=== PATIENT | female | born 1980 | race Two or more races ===

== ENCOUNTER 2025-07-23 01:48 | Inpatient (IN) | payer MEDICAID ==
[~2025-07-23] VITALS: Ht 170.2 cm; Wt 92.1 kg
[2025-07-23 04:37] VITALS: BP 121/72; PULSE 77; RESP 18; TEMP 98.4; O2SAT 100
[2025-07-23] MEDS ORDERED: PNEUMOCOCCAL VACCINE POLYVALENT 0.5 ML SYRINGE [PPSV23] IM. ONE (06:45)
[2025-07-23 08:11] VITALS: BP 129/85; PULSE 80; RESP 17; TEMP 98; O2SAT 100
[2025-07-23 09:13] LABS: PLATELET COUNT (AUTO) 255 K/uL (150-450); RED BLOOD CELL COUNT(AUTO) 3.93 MIL/uL (4.00-5.20); RED CELL DISTRIBUTION WIDTH 14.7 % (11.5-14.5); WHITE BLOOD COUNT (AUTO) 5.2 K/uL (4.5-11.0)
[2025-07-23 09:26] LABS: APPEARANCE,URINE TURBID (CLEAR); GLUCOSE, URINE (UA) TRACE mg/dL (NEGATIVE); LEUKOCYTE ESTERASE ,URINE MODERATE (NEGATIVE); NITRATE,URINE NEGATIVE (NEGATIVE); OCCULT BLOOD,URINE NEGATIVE (NEGATIVE); PH,URINE DRUG SCREEN 5.5 (5.0-8.0); SPECIFIC GRAVITIY, URINE 1.031 (1.003-1.030)
[2025-07-23 09:38] LABS: ASPARTATE AMINOTRANSFERASE 16 U/L (15-37); CALCIUM, TOTAL 8.7 mg/dL (8.8-10.5); CHOL/HDL RATIO 2.9 (3.9-5.7); CREATININE 0.41 mg/dL (0.60-1.30); GLOMERULAR FILTR. RATE CALC > 60 mL/min (>60); GLUCOSE,RANDOM 81 mg/dL (70-110); LDL CHOL (CALC.) 81 mg/dL (0-130); SODIUM SERUM 140 mmol/L (136-145); TOTAL PROTEIN, SERUM 6.7 g/dL (6.4-8.2); UREA NITROGEN, BLOOD 11 mg/dL (7-18)
[2025-07-23 09:43] LABS: ALCOHOL, URINE DRUG SCREEN NEGATIVE (NEGATIVE); AMPHET/METH SCREEN,URINE NEGATIVE (NEGATIVE); BARBITURATE SCREEN, URINE NEGATIVE (NEGATIVE); CANNABINOID SCREEN,URINE NEGATIVE (NEGATIVE); COCAINE SCREEN,URINE NEGATIVE (NEGATIVE); METHADONE SCREEN, URINE NEGATIVE (NEGATIVE)
[2025-07-23] MEDS ORDERED: ALBUTEROL SULFATE HFA 90 MCG/PUFF 8 GM INHALER IH PRN (09:45)
[2025-07-23] MEDS ORDERED: GuaiFENesin/D-METHORPHAN [SUGAR-FREE] 200-20MG/10 ML SYRUP UDCUP PO PRN (09:45)
[2025-07-23] MEDS ORDERED: LOPERAMIDE HCL 2 MG CAPSULE PO PRN (09:45)
[2025-07-23] MEDS ORDERED: NICOTINE 14 MG/24 HOUR PATCH TD PRN (09:45)
[2025-07-23] MEDS ORDERED: IBUPROFEN 400 MG TABLET PO PRN (09:45)
[2025-07-23] MEDS ORDERED: MAGNESIUM HYDROXIDE SUSPENSION 30 ML UDCUP PO PRN (09:45)
[2025-07-23] MEDS ORDERED: DOCUSATE SODIUM 100 MG CAPSULE PO PRN (09:45)
[2025-07-23] MEDS ORDERED: ONDANSETRON 4 MG TABLET PO PRN (09:45)
[2025-07-23] MEDS ORDERED: MAG HYDROX/ALUMINUM HYD/SIMETH ES 30 ML SUSPENSION UDCUP PO PRN (09:45)
[2025-07-23 09:56] LABS: SQUAMOUS EPITHELIAL CELL,UR Moderate /LPF (None Seen)
[2025-07-23 20:00] VITALS: BP 122/83; PULSE 73; RESP 18; TEMP 97.8; O2SAT 100
[2025-07-24 04:07] LABS: HEPATITIS C AB (EIA) Non Reactive (Non Reactive)
[2025-07-24 08:02] VITALS: BP 138/87; PULSE 90; RESP 16; TEMP 98.2; O2SAT 100
[2025-07-24] MEDS: CEPHALEXIN MONOHYDRATE 500 MG CAPSULE PO SCH (09:20)
[2025-07-24 09:33] LABS: CHOL/HDL RATIO 2.7 (3.9-5.7); LDL CHOL (CALC.) 78.0 mg/dL (0-130)
[2025-07-24 20:11] VITALS: BP 140/84; PULSE 87; RESP 17; TEMP 99; O2SAT 96
[2025-07-24] MEDS: ZOLPIDEM TARTRATE 10 MG TABLET PO PRN (21:28)
[2025-07-25 01:28] VITALS: RESP 18
[2025-07-25] MEDS: ACETAMINOPHEN 325 MG TABLET PO PRN (01:33)
[2025-07-25 08:46] VITALS: BP 131/81; PULSE 85; RESP 18; TEMP 98.4
[2025-07-25 20:13] VITALS: BP 139/87; PULSE 95; RESP 16; TEMP 97.7; O2SAT 97
[2025-07-26 08:28] VITALS: BP 133/91; PULSE 89; RESP 17; TEMP 97.5; O2SAT 100
[2025-07-26] MEDS ORDERED: LORazepam 2 MG/ML VIAL ONE (13:58)
[2025-07-26] MEDS: LORazepam 2 MG/ML VIAL IM ONE (14:18)
[2025-07-26 20:14] VITALS: BP 124/81; PULSE 69; TEMP 98.2; O2SAT 17
[2025-07-27 08:06] VITALS: BP 131/72; PULSE 64; RESP 18; TEMP 96.7; O2SAT 100
[2025-07-27 20:23] VITALS: BP 132/85; PULSE 66; RESP 18; TEMP 97.4; O2SAT 100
[2025-07-28 08:10] VITALS: BP 140/83; PULSE 90; RESP 18; TEMP 97.5; O2SAT 98
[2025-07-28 20:10] VITALS: BP 117/76; PULSE 81; RESP 17; TEMP 97.9; O2SAT 98
[2025-07-28] MEDS: PETROLATUM,WHITE 28 GM JELLY TP PRN (22:47)
[2025-07-29 08:29] VITALS: BP 126/92; PULSE 72; RESP 18; TEMP 97.5; O2SAT 99
[2025-07-29 21:02] VITALS: BP 124/89; PULSE 98; RESP 18; TEMP 98.2; O2SAT 100
[2025-07-30 08:05] VITALS: BP 132/84; PULSE 84; RESP 16; TEMP 98.1; O2SAT 100
[2025-07-30 20:20] VITALS: BP 128/99; PULSE 86; RESP 20; TEMP 97.8; O2SAT 100
[2025-07-31 08:22] VITALS: BP 108/79; PULSE 95; RESP 16; TEMP 98.5; O2SAT 100
[2025-07-31] MEDS ORDERED: LORazepam 2 MG/ML VIAL ONE (18:59)
[2025-07-31] MEDS: LORazepam 2 MG/ML VIAL IM ONE (19:41)
[2025-07-31 21:32] VITALS: BP 118/80; PULSE 81; RESP 18; TEMP 97.3; O2SAT 97
[2025-08-01 02:20] VITALS: BP 128/86; PULSE 85; RESP 17; TEMP 98.2; O2SAT 100
[2025-08-01 14:16] VITALS: RESP 18
[2025-08-01 21:22] VITALS: RESP 17
[2025-08-02 08:45] VITALS: RESP 18
[2025-08-02] MEDS: DIVALPROEX SODIUM 500 MG DR TABLET PO SCH (09:47)
[2025-08-02 10:05] VITALS: RESP 18
[2025-08-02 11:05] VITALS: RESP 18
[2025-08-02 20:16] VITALS: BP 127/82; PULSE 87; RESP 17; TEMP 97.1; O2SAT 100
[2025-08-03 08:25] VITALS: BP 133/69; PULSE 108; RESP 17; TEMP 97.3; O2SAT 100
[2025-08-03 20:10] VITALS: BP 132/91; PULSE 100; RESP 18; TEMP 97.7; O2SAT 100
[2025-08-04 08:05] VITALS: PULSE 100; RESP 16; TEMP 97.6; O2SAT 98
[2025-08-04 10:34] VITALS: BP 122/77; PULSE 86; RESP 17; TEMP 97.1; O2SAT 100
[2025-08-04 20:21] VITALS: BP 113/83; PULSE 100; RESP 17; TEMP 97.6; O2SAT 98
[2025-08-05 08:08] VITALS: BP 126/76; PULSE 105; RESP 16; TEMP 97.6; O2SAT 98
[2025-08-05 20:15] VITALS: BP 128/83; PULSE 101; RESP 17; TEMP 97.5; O2SAT 98
[2025-08-06 08:19] VITALS: BP 131/86; PULSE 99; RESP 16; TEMP 98.1; O2SAT 98
[2025-08-06] MEDS: CEPHALEXIN MONOHYDRATE 500 MG CAPSULE PO SCH (08:29)
[2025-08-06 20:10] VITALS: BP 115/69; PULSE 90; RESP 17; TEMP 97.2; O2SAT 99
[2025-08-07 09:00] VITALS: BP 139/103; PULSE 108; RESP 19; TEMP 97.8; O2SAT 100
[2025-08-07 10:47] VITALS: BP 113/89; PULSE 93; RESP 17; TEMP 97.2; O2SAT 99
[2025-08-07 20:15] VITALS: BP 115/73; PULSE 84; RESP 17; TEMP 97.8; O2SAT 98
[2025-08-08 08:29] VITALS: BP 125/82; PULSE 102; RESP 17; TEMP 97.2; O2SAT 100
[2025-08-08 21:18] VITALS: BP 106/62; PULSE 77; RESP 16; TEMP 97.2; O2SAT 100
[2025-08-09 08:11] VITALS: BP 133/88; PULSE 96; RESP 16; TEMP 98; O2SAT 99
[2025-08-09 20:27] VITALS: RESP 17
[2025-08-10 09:32] VITALS: BP 123/82; PULSE 95; RESP 16; TEMP 97.6; O2SAT 99
[2025-08-10] MEDS ORDERED: DIVA-112 PO (12:33)
[2025-08-10] MEDS ORDERED: RISP-32 PO (12:34)
[2025-08-10] MEDS ORDERED: CEPH-558 PO (12:49)
== END 2025-08-10 16:38 | disposition home or self-care (01) | DRG 753 ==
LOC: B2S 03:38 → B3A 08-01 02:44
PROVIDERS: ADMIT Psychiatry & Neurology Psychiatry; ATTEND Psychiatry & Neurology Psychiatry
PROC: GZHZZZZ Group Psychotherapy (ICD-10-PCS; principal; 2025-07-23)
PROC: GZ51ZZZ Individual Psychotherapy, Behavioral (ICD-10-PCS; 2025-07-23)
DX: F31.4 Bipolar disorder, current episode depressed, severe, without psychotic features (principal); D64.9 Anemia, unspecified; N39.0 Urinary tract infection, site not specified; E66.9 Obesity, unspecified; K21.9 Gastro-esophageal reflux disease without esophagitis; J45.909 Unspecified asthma, uncomplicated; G47.00 Insomnia, unspecified; F41.9 Anxiety disorder, unspecified; Z68.31 Body mass index [BMI] 31.0-31.9, adult
CPT/HCPCS: 80053; 80061; 80164; 80307; 81001; 83036; 84439; 84443; 84703; 85025; 86803; 87081; 87086; 87340; J1200; J1630; J2060